=== PATIENT | male | born 1965 | race Caucasian/White ===

== ENCOUNTER 2022-12-19 19:35 | Emergency (ER) | payer MEDICAID, OTHER ==
[~2022-12-19] VITALS: Ht 157.5 cm; Wt 70.0 kg
[2022-12-19 20:29] LABS: Basophils # (auto) 0.1 10 ^3/uL (0-0.2); Basophils % (auto) 0.9 % (0.0-2.0); Eosinophils # (auto) 0.1 10 ^3/uL (0-0.8); Eosinophils % (auto) 1.8 % (0.0-7.0); Hematocrit 44.9 % (41.0-53.0); Hemoglobin 15.5 g/dL (13.5-17.5); Lymphocytes # (auto) 2.7 10 ^3/uL (0.4-5.4); Lymphocytes % (auto) 37.7 % (10.0-50.0); Mean Corpuscular Hemoglobin 29.9 pg (28.0-32.0); Mean Corpuscular Hgb Conc. 34.6 g/dL (32.0-36.0); Mean Corpuscular Volume 86.3 fL (80.0-100.0); Monocytes # (auto) 0.8 10 ^3/uL (0-1.3); Monocytes % (auto) 10.5 % (0.0-12.0); Neutrophils # (auto) 3.5 10 ^3/uL (1.6-8.6); Neutrophils % (auto) 49.1 % (37.0-80.0); Nucleated Red Blood Cells % 0.1 %; Red Cell Distribution Width 14.1 % (11.8-14.3); White Blood Cell 7.2 10^3/uL (4.4-10.8)
[2022-12-19 20:45] LABS: Albumin 4.2 g/dL (3.4-5.0); BUN/Creatinine Ratio 25.5 (10.0-20.0); Calcium 9.4 mg/dL (8.5-10.1); Magnesium 2.6 mg/dL (1.6-2.6); Potassium 4.7 mmol/L (3.5-5.1)
[2022-12-19 20:48] LABS: Bilirubin, Total 0.4 mg/dL (0.2-1.0); Total Protein 8.2 g/dL (6.4-8.2)
[2022-12-19 20:49] LABS: Partial Thromboplastin Time 26.2 SEC (24.5-34.5)
[2022-12-19 23:33] VITALS: BP 118/91; PULSE 101; RESP 19; TEMP 97.5; O2SAT 96
[2022-12-20] MEDS ORDERED: NITR0.4S29 SL ×3 (00:12→00:13)
[2022-12-20] MEDS ORDERED: CLON0.2T PO ×3 (00:12→00:13)
== END 2022-12-20 00:38 | disposition home or self-care (01) ==
LOC: ER 19:35 → EDBD 19:35 → ER 12-20 00:28
DX: R07.89 Other chest pain (principal); I20.9 Angina pectoris, unspecified; I10 Essential (primary) hypertension; F17.210 Nicotine dependence, cigarettes, uncomplicated
CPT/HCPCS: 36415; 80053; 83735; 83880; 84484; 85025; 85610; 85730; 93005

== ENCOUNTER 2023-01-28 13:44 | Emergency (ER) | payer MEDICAID ==
[~2023-01-28] VITALS: Ht 157.5 cm; Wt 67.7 kg
[~2023-01-28 13:44] MED LIST: CLON0.2T PO; NITR0.4S29 SL
[2023-01-28] MEDS ORDERED: cloNIDine HCL 0.1 MG TAB PO ONE (14:15)
[2023-01-28] MEDS ORDERED: CLON0.2T PO (16:06)
[2023-01-28 16:15] VITALS: BP 143/90; PULSE 100; RESP 18; TEMP 98.6; O2SAT 96
== END 2023-01-28 16:35 | disposition home or self-care (01) ==
LOC: ER 13:44
DX: I10 Essential (primary) hypertension (principal); F17.210 Nicotine dependence, cigarettes, uncomplicated; Z76.0 Encounter for issue of repeat prescription; Z79.899 Other long term (current) drug therapy

== ENCOUNTER 2023-05-20 19:07 | Inpatient (IN) | payer MEDICAID ==
[~2023-05-20] VITALS: Ht 157.5 cm; Wt 72.7 kg
[2023-05-20 19:35] LABS: Basophils # (auto) 0 10 ^3/uL (0-0.2); Basophils % (auto) 0.6 % (0.0-2.0); Eosinophils # (auto) 0.2 10 ^3/uL (0-0.8); Eosinophils % (auto) 3.1 % (0.0-7.0); Hematocrit 43.6 % (41.0-53.0); Hemoglobin 15.1 g/dL (13.5-17.5); Lymphocytes # (auto) 2.5 10 ^3/uL (0.4-5.4); Lymphocytes % (auto) 47.5 % (10.0-50.0); Mean Corpuscular Hemoglobin 29.7 pg (28.0-32.0); Mean Corpuscular Hgb Conc. 34.6 g/dL (32.0-36.0); Mean Corpuscular Volume 85.9 fL (80.0-100.0); Monocytes # (auto) 0.6 10 ^3/uL (0-1.3); Monocytes % (auto) 10.7 % (0.0-12.0); Neutrophils % (auto) 38.1 % (37.0-80.0); Nucleated Red Blood Cells % 0.2 %; Red Blood Cells 5.07 10^6/uL (4.5-5.90); Red Cell Distribution Width 13.3 % (11.8-14.3); White Blood Cell 5.2 10^3/uL (4.4-10.8)
[2023-05-20 19:50] LABS: INR 1.04 (0.9-1.15); Partial Thromboplastin Time 26.8 SEC (24.5-34.5); Prothrombin Time 10.9 sec (9.3-11.8)
[2023-05-20 19:55] LABS: Alanine Aminotransferase 229 U/L (7-40); Albumin 4.5 g/dL (3.2-4.8); Alkaline Phosphatase 84 U/L (46-116); Anion Gap 7 (5-15); Aspartate Aminotransferase 91 U/L (13-40); BUN/Creatinine Ratio 30.3 (10.0-20.0); Blood Urea Nitrogen 30 mg/dL (9-23); Calcium 9.5 mg/dL (8.7-10.4); Carbon Dioxide 25 mmol/L (20-30); Chloride 107 mmol/L (98-107); Glucose 77 mg/dL (74-106); Magnesium 1.8 mg/dL (1.6-2.6); Potassium 4.4 mmol/L (3.5-5.1); Sodium 139 mmol/L (136-145)
[2023-05-20 19:56] LABS: Bilirubin, Total 0.4 mg/dL (0.2-1.0); Total Protein 7.7 g/dL (5.7-8.2)
[2023-05-20] MEDS ORDERED: hydrALAZINE HCL 20 MG/ML VL IV ONE (20:00)
[2023-05-21] MEDS ORDERED: CLON0.2T PO (01:32)
[2023-05-21] MEDS ORDERED: IBUP1TAB5 PO (01:32)
[2023-05-21 01:40] VITALS: PULSE 74; RESP 17; O2SAT 97
[2023-05-21] MEDS ORDERED: hydrALAZINE HCL 20 MG/ML VL IV PRN (02:45)
[2023-05-21] MEDS ORDERED: ONDANSETRON HCL 4 MG/2 ML VIAL IV PRN (02:45)
[2023-05-21] MEDS ORDERED: NITROGLYCERIN 0.4 MG SL TAB SL PRN (02:45)
[2023-05-21] MEDS ORDERED: MORPHINE SULFATE INJ 2 MG/ml SYRG IV PRN (02:45)
[2023-05-21 06:03] LABS: Urine WBC None Seen /hpf (0 - 3)
[2023-05-21 06:38] LABS: Urine Bacteria FEW /hpf (None Seen); Urine Blood Negative /uL (Negative); Urine Clarity Clear (Clear); Urine Protein, UAD Negative (Negative); Urine Specific Gravity 1.018 (1.001-1.035); Urine Urobilinogen Normal (Negative); Urine pH 5.5 (5.0-8.0)
[2023-05-21 06:56] LABS: Urine Color STRAW (Yellow)
[2023-05-21 08:00] VITALS: PULSE 88; RESP 20; O2SAT 94
[2023-05-21] MEDS: cloNIDine HCL 0.1 MG TAB PO SCH ×2 (10:29→22:02)
[2023-05-21] MEDS ORDERED: hydroCHLOROthiazide 25 MG TAB PO ONE (13:45)
[2023-05-21] MEDS ORDERED: METOPROLOL TARTRATE 50 MG TAB PO ONE (13:45)
[2023-05-21 19:00] VITALS: BP 110/65; TEMP 37
[2023-05-21 20:00] VITALS: PULSE 93; PULSE 94; RESP 18; O2SAT 98
[2023-05-21] MEDS: METOPROLOL TARTRATE 50 MG TAB PO SCH (22:03)
[2023-05-21 22:11] VITALS: BP 135/79; PULSE 94; RESP 18; TEMP 97.9; O2SAT 94
[2023-05-22] VITALS (7 sets, daily range): BP systolic 107–127; BP diastolic 65–86; PULSE 59–71; RESP 16–18; TEMP 36.6; O2SAT 95–98
[2023-05-22] MEDS: cloNIDine HCL 0.1 MG TAB PO SCH (09:27)
[2023-05-22] MEDS: METOPROLOL TARTRATE 50 MG TAB PO SCH (09:28)
[2023-05-22] MEDS ORDERED: METO-158 PO (09:47)
[2023-05-22] MEDS ORDERED: HYDR25TA5 PO (09:47)
[2023-05-22] MEDS ORDERED: hydroCHLOROthiazide 25 MG TAB PO SCH (10:00)
== END 2023-05-22 14:30 | disposition home or self-care (01) | DRG 199 ==
LOC: ER 19:07 → TELE 05-21 02:41 → TELE-WESTW 05-21 18:14
PROVIDERS: ADMIT Nurse Practitioner; ATTEND Family Medicine
DX: I16.0 Hypertensive urgency (principal); F17.210 Nicotine dependence, cigarettes, uncomplicated; M94.0 Chondrocostal junction syndrome [Tietze]; I10 Essential (primary) hypertension
CPT/HCPCS: 36415; 71045; 80053; 81001; 83735; 83880; 84484; 85025; 85610; 85730; 93005; 93306; G0378